=== PATIENT | female | born 1970 | race Caucasian/White ===

== ENCOUNTER 2017-01-01 09:59 | Outpatient (CLI) | payer OTHER ==
[~2017-01-01 09:59] MED LIST: ACTIVATED CHARCOAL PO; HYDR-552 PO; MAGN1TAB7 PO; PANT40TA2 PO
[2017-01-01 10:26] LABS: BASOPHILS % (AUTO) 0.5 % (0.0-2.0); EOSINOPHILS % (AUTO) 0.7 % (0.0-7.0); HEMOGLOBIN 12.9 G/DL (12.0-16.0); LYMPHOCYTES % (AUTO) 35.5 % (20.5-51.5); MEAN CORPUSCULAR HEMOGLOBIN 29.2 UUG (27.0-31.0); MEAN CORPUSCULAR HGB CONC 33 g/dL (32.0-37.0); MEAN CORPUSCULAR VOLUME 88.7 FL (81.0-99.0); MONOCYTES # (AUTO) 0.5 K/UL (0.1-1.30); MONOCYTES % (AUTO) 8.3 % (0.0-11.0); NEUTROPHILS # (AUTO) 3.3 K/UL (1.8-8.9); PLATELET COUNT (AUTO) 374 K/UL (150-450); WHITE BLOOD COUNT (AUTO) 5.8 K/UL (4.0-11.2)
[2017-01-01 10:34] LABS: BILIRUBIN,TOTAL 0.4 mg/dL (0.2-1.0); CREATININE 0.7 mg/dL (0.6-1.3); TOTAL PROTEIN, SERUM 8.4 g/dL (6.4-8.2)
== END 2017-01-01 23:59 | disposition home or self-care (01) ==
LOC: LAB 09:59
PROVIDERS: ATTEND Surgery
DX: R10.9 Unspecified abdominal pain (principal)
CPT/HCPCS: 36415; 83690; 85025

== ENCOUNTER 2018-01-15 15:23 | Emergency (ER) | payer BC, OTHER ==
[~2018-01-15] VITALS: Ht 162.6 cm; Wt 49.0 kg
[2018-01-15] MEDS ORDERED: IV NORMAL SALINE 1000 ML BAG IV ONE (16:30)
[2018-01-15 16:37] LABS: BASOPHILS % (AUTO) 0.5 % (0.0-2.0); EOSINOPHILS % (AUTO) 0.5 % (0.0-7.0); HEMATOCRIT 39.4 % (31.2-41.9); HEMOGLOBIN 13.2 g/dL (10.9-14.3); LYMPHOCYTES # (AUTO) 1.8 K/uL (20.0-40.0); LYMPHOCYTES % (AUTO) 19.4 % (20.5-51.5); MEAN CORPUSCULAR HEMOGLOBIN 29.9 uug (24.7-32.8); MEAN CORPUSCULAR HGB CONC 34 g/dL (32.3-35.6); MEAN CORPUSCULAR VOLUME 89.4 fL (75.5-95.3); MONOCYTES # (AUTO) 0.5 K/uL (2.0-10.0); MONOCYTES % (AUTO) 5.4 % (0.0-11.0); NEUTROPHILS # (AUTO) 6.8 K/uL (1.8-8.9); NEUTROPHILS % (AUTO) 74.2 % (38.5-71.5); PLATELET COUNT (AUTO) 283 K/uL (179-408); RED BLOOD CELL COUNT(AUTO) 4.41 MIL/uL (3.63-4.92); WHITE BLOOD COUNT (AUTO) 9.2 K/uL (3.8-11.8)
[2018-01-15] MEDS ORDERED: MECLIZINE HCL 25 MG TABLET PO ONE (16:45)
[2018-01-15 16:46] LABS: CREATININE 0.8 mg/dL (0.6-1.3); POTASSIUM 3.5 mmol/L (3.5-5.1)
[2018-01-15] MEDS ORDERED: DIAZEPAM 5 MG TABLET ONE ×2 (17:09→18:14)
[2018-01-15] MEDS ORDERED: MECLIZINE HCL 25 MG TABLET ONE (17:09)
[2018-01-15] MEDS ORDERED: DIAZEPAM 10 MG/2 ML DISP.SYRIN IV ONE (17:15)
[2018-01-15] MEDS ORDERED: DIAZEPAM 2 MG TABLET PO ONE (17:45)
--- NOTE | 2018-01-15 18:16 | NUR ---
Patient discharged to home in stable conditon. Written and verbal after care instructions given. Patient verbalizes understanding of instructions.
== END 2018-01-15 18:17 | disposition home or self-care (01) ==
LOC: ER 15:25
DX: R42 Dizziness and giddiness (principal); Z90.49 Acquired absence of other specified parts of digestive tract; Z88.0 Allergy status to penicillin; Z79.891 Long term (current) use of opiate analgesic; Z79.899 Other long term (current) drug therapy
CPT/HCPCS: 36415; 70450; 84703; 85025; 93005; A4663; J7030; J8597

== ENCOUNTER 2025-01-11 14:45 | Inpatient (IN) | payer BC ==
[~2025-01-11] VITALS: Ht 160 cm; Wt 52.2 kg
[~2025-01-11 14:45] MED LIST changes: +HYDR-4384 PO; -HYDR-552 PO
[2025-01-11 15:12] LABS: PLATELET COUNT (AUTO) 266 K/uL (179-408); RED BLOOD CELL COUNT(AUTO) 4.04 MIL/uL (3.63-4.92); RED CELL DISTRIBUTION WIDTH 13.0 % (12.3-17.7); WHITE BLOOD COUNT (AUTO) 5.5 K/uL (3.8-11.8)
[2025-01-11 15:26] LABS: CREATININE 0.5 mg/dL (0.6-1.3); SODIUM SERUM 139 mmol/L (136-145); UREA NITROGEN, BLOOD 11 mg/dL (7-18)
[2025-01-11] MEDS ORDERED: LORAZEPAM 0.5 MG TABLET ONE (15:30)
[2025-01-11] MEDS: LORAZEPAM 0.5 MG TABLET PO ONE (15:31)
[2025-01-11 16:16] LABS: ASPARTATE AMINOTRANSFERASE 28.0 U/L (15-37); TOTAL PROTEIN, SERUM 7.8 g/dL (6.4-8.2)
[2025-01-11 17:14] VITALS: BP 114/59; TEMP 98.2; O2SAT 99
[2025-01-11] MEDS ORDERED: HYDROCODONE/APAP 5-325MG TABLET PO PRN (17:15)
[2025-01-11] MEDS ORDERED: LORAZEPAM 1 MG TABLET PO PRN (17:30)
[2025-01-11] MEDS: LORAZEPAM 2 MG/1 ML VIAL IV PRN (17:55)
[2025-01-11] MEDS: IV NS 1000 ML 1,000 ML IV PRN (18:08)
[2025-01-11] MEDS ORDERED: DIAZ5TAB4 PO (18:18)
[2025-01-11] MEDS ORDERED: PROG100C8 PO (18:18)
[2025-01-11] MEDS ORDERED: ESTR1PAT88 TD (18:19)
[2025-01-11] MEDS ORDERED: MULTIVITAMIN IV (18:20)
[2025-01-11] MEDS ORDERED: VITAMIN IV (18:21)
[2025-01-11 19:52] VITALS: BP 98/63; TEMP 98.9; O2SAT 97
[2025-01-11] MEDS ORDERED: ACETAMINOPHEN 325 MG TABLET PO PRN (22:00)
[2025-01-11] MEDS ORDERED: ONDANSETRON 4 MG/2 ML VIAL IV PRN (22:00)
[2025-01-11] MEDS: TEMAZEPAM 15 MG CAPSULE PO PRN (22:21)
[2025-01-12 06:11] VITALS: BP 95/52; TEMP 97.6; O2SAT 99
[2025-01-12 07:29] LABS: ASPARTATE AMINOTRANSFERASE 14 U/L (15-37); CREATININE 0.5 mg/dL (0.6-1.3); PLATELET COUNT (AUTO) 258 K/uL (179-408); RED BLOOD CELL COUNT(AUTO) 4.04 MIL/uL (3.63-4.92); RED CELL DISTRIBUTION WIDTH 13.2 % (12.3-17.7); SODIUM SERUM 140 mmol/L (136-145); TOTAL PROTEIN, SERUM 6.9 g/dL (6.4-8.2); UREA NITROGEN, BLOOD 8 mg/dL (7-18); WHITE BLOOD COUNT (AUTO) 5.1 K/uL (3.8-11.8)
[2025-01-12 07:31] VITALS: BP 99/58; TEMP 98.2; O2SAT 97
[2025-01-12] MEDS: PAROXETINE HCL 10 MG TABLET PO SCH (09:53)
[2025-01-12] MEDS: PANTOPRAZOLE SODIUM 40 MG TABLET.DR PO SCH (09:53)
[2025-01-12] MEDS: ASPIRIN EC 81 MG TABLET.DR PO SCH (09:54)
[2025-01-12] MEDS ORDERED: PARO10TA4 PO (10:06)
== END 2025-01-12 11:00 | disposition home or self-care (01) | DRG 206 ==
LOC: ER 14:45 → TELE3 16:07 → MEDSURG3 01-12 08:14
PROVIDERS: ADMIT Internal Medicine; ATTEND Internal Medicine
DX: M94.0 Chondrocostal junction syndrome [Tietze] (principal); F41.1 Generalized anxiety disorder; F41.0 Panic disorder [episodic paroxysmal anxiety]; M75.02 Adhesive capsulitis of left shoulder; Z88.0 Allergy status to penicillin; Z80.0 Family history of malignant neoplasm of digestive organs; Z82.49 Family history of ischemic heart disease and other diseases of the circulatory system; M81.0 Age-related osteoporosis without current pathological fracture; M51.34 Other intervertebral disc degeneration, thoracic region; R00.1 Bradycardia, unspecified; K21.9 Gastro-esophageal reflux disease without esophagitis; Z90.49 Acquired absence of other specified parts of digestive tract; I44.0 Atrioventricular block, first degree
CPT/HCPCS: 36415; 71045; 83735; 84100; 84443; 84484; 85025; A4663; G0378; J2060; J7040